=== PATIENT | female | born 1980 | race Caucasian/White ===

== ENCOUNTER → 2017-08-01 | Outpatient (CLI) | payer BC ==
[2015-07-23 16:52] VITALS: BP 123/58
[~2017-08-01] MED LIST: BIRTH CONTROL; XANAX0.5 M1 PO
== END ==
LOC: LAB 16:57
DX: Z00.00 Encounter for general adult medical examination without abnormal findings (principal)

== ENCOUNTER → 2018-07-27 | Outpatient (CLI) | payer BC ==
[~2018-07-27] VITALS: Ht 162.6 cm; Wt 46.8 kg
[~2018-07-27] MED LIST changes: +CIPRO250 M1 PO; +RELPAX 40MG TAB40 MG PO
[2018-07-27 12:45] VITALS: BP 117/85
== END ==
LOC: ED 11:47 → EDSTATUS 12:48 → LAB 12:49 → AMSURD 12:49
DX: R07.89 Other chest pain (principal)

== ENCOUNTER → 2019-06-01 | Outpatient (CLI) | payer BC ==
[~2019-06-01] VITALS: Ht 162.6 cm; Wt 46.8 kg
[~2019-06-01] MED LIST changes: +AFRIN PUMPMIST15 ML NS; +CEFDINIR300 MG PO; +NORCO 325 MG-51 TA1 PO; +ZOFRAN ODT4 MG PO
[2019-06-01 11:39] VITALS: BP 113/79
[2019-06-01 14:50] VITALS: BP 123/76
[2019-06-01 14:51] VITALS: BP 126/76
[2019-06-02 19:02] VITALS: BP 117/79
== END ==
LOC: AMSURD 11:22
DX: E86.0 Dehydration (principal)
CPT/HCPCS: J0696; J7120

== ENCOUNTER 2019-06-02 15:54 | Emergency (ER) | payer BC ==
[~2019-06-02 15:54] MED LIST changes: -AFRIN PUMPMIST15 ML NS; -CEFDINIR300 MG PO; -NORCO 325 MG-51 TA1 PO; -ZOFRAN ODT4 MG PO
[2019-06-02] MEDS ORDERED: CEFDINIR300 MG PO (16:13)
[2019-06-02] MEDS ORDERED: AFRIN PUMPMIST15 ML NS (16:13)
[2019-06-02 17:13] LABS: BASO # 0.1 (0.02-0.10); EOS # 0.2 (0.04-0.40); EOS % 2.5 % (1.0-5.0); HEMATOCRIT 40.4 % (37.0-47.0); HEMOGLOBIN 13.5 g/dL (12.5-16.0); LYMPH# 1.6 (1.50-4.00); MEAN CELL VOLUME 88 fl (78-100); MEAN CORPUSCULAR HEMOGLOBIN 30 pg (27-31); MEAN CORPUSCULAR HGB CONC 33 g/dL (33-37); MEAN PLATELET VOLUME 9.2 fl (7.4-10.4); MONO # 0.7 (0.20-0.80); NEU # 4.1 (1.40-6.50); PLATELET COUNT 221 K/mm3 (130-400); RED BLOOD COUNT 4.58 M/mm3 (4.10-5.30); RED CELL DISTRIBUTION WIDTH 12.7 % (11.5-14.5); WHITE BLOOD COUNT 6.8 K/mm3 (4.8-10.8)
[2019-06-02 17:24] LABS: POTASSIUM 4.6 mmol/L (3.5-5.1)
[2019-06-02 17:40] LABS: ALBUMIN 3.9 g/dL (3.5-5.0)
[2019-06-02 17:41] LABS: CALCIUM 9.3 mg/dL (8.3-10.5)
[2019-06-02 17:43] LABS: TOTAL PROTEIN 7.2 g/dL (6.4-8.3)
[2019-06-02 17:44] LABS: TOTAL BILIRUBIN 0.5 mg/dL (0.2-1.2)
[2019-06-02 18:16] LABS: ERYTHROCYTE SEDIMENTATION RATE 13 mm/hr (0-20)
[2019-06-02] MEDS ORDERED: ZOFRAN ODT4 MG PO (18:40)
[2019-06-02] MEDS ORDERED: NORCO 325 MG-51 TA1 PO (18:40)
[2019-06-02 19:02] VITALS: BP 117/79
== END 2019-06-02 19:04 | disposition home or self-care (01) ==
LOC: ED 15:54
PROVIDERS: Family Medicine
DX: R51 Headache (principal); R11.2 Nausea with vomiting, unspecified; Z87.891 Personal history of nicotine dependence; Z98.890 Other specified postprocedural states

== ENCOUNTER → 2019-12-14 | Outpatient (CLI) | payer BC ==
[~2019-12-14] MED LIST changes: +AFRIN PUMPMIST15 ML NS; +CEFDINIR300 MG PO; +NORCO 325 MG-51 TA1 PO; +ZOFRAN ODT4 MG PO
== END ==
LOC: RAD 10:13
DX: M54.9 Dorsalgia, unspecified (principal); M54.6 Pain in thoracic spine

== ENCOUNTER → 2020-02-05 | Outpatient (CLI) | payer BC | LOC: RAD 07:26 | DX: Z12.31 Encounter for screening mammogram for malignant neoplasm of breast (principal); M54.5 Low back pain; M54.6 Pain in thoracic spine ==

== ENCOUNTER → 2020-09-19 | Outpatient (CLI) | payer OTHER ==
[2020-09-19 11:17] LABS: BASO # 0.1 (0.02-0.10); EOS # 0.1 (0.04-0.40); EOS % 1.6 % (1.0-5.0); HEMATOCRIT 43.2 % (37.0-47.0); HEMOGLOBIN 14.1 g/dL (12.5-16.0); LYMPH# 1.9 (1.50-4.00); MEAN CELL VOLUME 91 fl (78-100); MEAN CORPUSCULAR HEMOGLOBIN 30 pg (27-31); MEAN CORPUSCULAR HGB CONC 33 g/dL (33-37); MEAN PLATELET VOLUME 9.1 fl (7.4-10.4); MONO # 0.5 (0.20-0.80); NEU # 2.6 (1.40-6.50); PLATELET COUNT 276 K/mm3 (130-400); RED BLOOD COUNT 4.75 M/mm3 (4.10-5.30); RED CELL DISTRIBUTION WIDTH 12.6 % (11.5-14.5); WHITE BLOOD COUNT 5.2 K/mm3 (4.8-10.8)
[2020-09-19 11:29] LABS: ALBUMIN 4.2 g/dL (3.5-5.0); POTASSIUM 4.4 mmol/L (3.5-5.1)
[2020-09-19 11:30] LABS: CALCIUM 8.9 mg/dL (8.3-10.5)
[2020-09-19 11:33] LABS: TOTAL BILIRUBIN 0.5 mg/dL (0.2-1.2)
[2020-09-19 11:38] LABS: MAGNESIUM 1.92 mg/dL (1.60-2.60)
[2020-09-19 12:37] LABS: ERYTHROCYTE SEDIMENTATION RATE 9 mm/hr (0-20)
== END ==
LOC: LAB 10:49
PROVIDERS: Internal Medicine
DX: Z00.00 Encounter for general adult medical examination without abnormal findings (principal)

== ENCOUNTER → 2024-02-11 | Outpatient (CLI) | payer OTHER ==
[~2024-02-11] VITALS: Ht 162.6 cm; Wt 46.8 kg
[~2024-02-11] MED LIST changes: +Loperamide 2 MG CAP PO ONE; +NS 1,000 ML IV SCH; +Ondansetron 4 MG/2 ML VIAL IV ONE
[2024-02-11 12:11] VITALS: BP 107/64
== END ==
LOC: AMSURD 10:27
DX: A08.4 Viral intestinal infection, unspecified (principal)
CPT/HCPCS: J2405; J7030

== ENCOUNTER → 2024-06-21 | Outpatient (CLI) | payer OTHER ==
[~2024-06-21] MED LIST changes: -Loperamide 2 MG CAP PO ONE; -NS 1,000 ML IV SCH; -Ondansetron 4 MG/2 ML VIAL IV ONE
== END ==
LOC: MAMMO 09:00
DX: Z12.31 Encounter for screening mammogram for malignant neoplasm of breast (principal)

== ENCOUNTER → 2024-10-15 | Outpatient (CLI) | payer OTHER | LOC: RAD 10:49 | DX: R05.3 Chronic cough (principal) ==